=== PATIENT | male | born 1970 | race Caucasian/White ===

== ENCOUNTER 2018-03-05 21:54 | Emergency (ER) | payer BC ==
[2018-03-05 23:01] LABS: Absolute Lymphocytes (CBC) 3.1 K/uL (0.7-4.9); Absolute Neutrophil 10.8 K/uL (1.8-8.0); Basophils % 1.2 % (0-1.3); Eosinophils % 0.2 % (0-4.4); Lymphocytes % 20.3 % (15.3-44.8); MCV 84.7 fL (80-100); MPV 9.1 fL (7.6-11.3); Monocytes % 6.6 % (3.3-12.3); RBC Red Blood Cell Count 4.49 M/uL (4.33-5.43)
[2018-03-05] MEDS ORDERED: LIDOCAINE 1% W/EPI 1:100,000 MDV 50 ML VIAL ONE (23:09)
[2018-03-05] MEDS ORDERED: BUPIVACAINE 0.5% PF 10 ML VIAL ONE (23:09)
[2018-03-05 23:14] LABS: Potassium 3.5 mmol/L (3.5-5.1)
--- NOTE | 2018-03-05 23:32 | EDPHYS ---
Physician Documentation [facility] Name: Hayden Tolentino Jr Age: 47 yrs Sex: Male : 1970 Arrival Date: 03/05/2018 Time: 22:00 Bed 30 Private MD: ED Physician Hayden Pugh HPI: 03/05 22:38 This 47 yrs old Male presents to ER via Ambulatory with complaints of cp Possible Insect Bite. 22:40 The patient or guardian complains of an abscess, pain, swelling, tenderness. The cp complaints affect the left forearm. Context: resulted from possible insect bite. Treatment prior to arrival includes: prescription medications, topical cream. Associated signs and symptoms: Pertinent positives: warmth, Pertinent negatives: decreased range of motion, fever, numbness, weakness. Historical: - Allergies: 22:20 No Known Allergies; ea - Home Meds: 22:20 None [Active]; ea - PMHx: 22:20 None; ea - Immunization history:: Adult Immunizations up to date. - Social history:: Smoking status: Patient/guardian denies using tobacco. - Ebola Screening: : No symptoms or risks identified at this time. ROS: 22:45 Constitutional: Negative for body aches, chills, fever, poor PO intake. cp 22:45 Eyes: Negative for injury, pain, redness, and discharge. cp 22:45 Cardiovascular: Negative for chest pain, palpitations. 22:45 Respiratory: Negative for cough, shortness of breath, wheezing. 22:45 Abdomen/GI: Negative for abdominal pain, nausea, vomiting, and diarrhea. 22:45 Skin: Positive for abscess, cellulitis, of the left forearm. 22:45 Neuro: Negative for dizziness, headache, numbness, weakness. 22:45 All other systems are negative. Exam: 22:52 Constitutional: The patient appears in no acute distress, alert, awake, cp non-diaphoretic, non-toxic, well developed, well nourished. 22:52 Head/Face: Normocephalic, atraumatic. cp 22:52 Eyes: Periorbital structures: appear normal, Conjunctiva: normal, no exudate, no injection, Sclera: no appreciated abnormality, Lids and lashes: appear normal, bilaterally. 22:52 ENT: External ear(s): Nose: is normal, Mouth: Lips: moist, Oral mucosa: pink and intact, moist, Posterior pharynx: is normal, airway is patent, no erythema, no exudate. 22:52 Neck: ROM/movement: is normal, is supple, without pain, no range of motions limitations, no nuchal rigidity. 22:52 Chest/axilla: Inspection: normal. 22:52 Cardiovascular: Rate: normal, Rhythm: regular, Pulses: Pulses are 2+ in right radial artery and left radial artery. 22:52 Respiratory: the patient does not display signs of respiratory distress, Respirations: normal, no use of accessory muscles, no retractions, no splinting, no tachypnea, labored breathing, is not present. 22:52 Abdomen/GI: Inspection: abdomen appears normal, Bowel sounds: normal, in all quadrants. 22:52 Skin: abscess, that is small, times 2, of the left forearm, with surrounding cellulitis, that is moderate. Vital Signs: 22:20 BP 105 / 79; Pulse 86; Resp 20; Temp 99.7; Pulse Ox 97% on R/A; Weight 120.2 kg; Height ea 5 ft. 9 in. (175.26 cm); Pain 5/10; 03/06 00:34 BP 118 / 72; Pulse 80; Pulse Ox 96% on R/A; rv 03/05 22:20 Body Mass Index 39.13 (120.20 kg, 175.26 cm) ea Procedures: 03/05 23:29 I \T\ D: Incision and drainage was performed for an abscess of the left palmar aspect of cp left forearm Prepped with Betadine, Anesthetized with 8 ccs of 50/50 mixture 1% lidocaine with epi and 0.5% marcaine. Incised with #11 blade. Drained small amount purulent fluid. Cultures obtained. Packed with iodoform gauze, Dressing: sterile 4x4 gauze, the patient tolerated the procedure well, 2 separate areas noted to left forearm. MDM: 22:25 Patient medically screened. cp 23:00 Differential diagnosis: insect bite, sepsis, cellulitis, abscess. cp 23:30 Data reviewed: vital signs, nurses notes, lab test result(s), radiologic studies, plain cp films. 23:30 Counseling: I had a detailed discussion with the patient and/or guardian regarding: the cp historical points, exam findings, and any diagnostic results supporting the discharge/admit diagnosis, lab results, radiology results, the need for outpatient follow up, a family practitioner, to return to the emergency department if symptoms worsen or persist or if there are any questions or concerns that arise at home. Response to treatment: the patient's symptoms have markedly improved after treatment, and as a result, I will discharge patient. 03/05 22:40 Order name: CBC with Diff; Complete Time: 23:16 cp 03/05 22:40 Order name: BMP; Complete Time: 23:16 cp 03/05 22:40 Order name: Wound Culture cp 03/05 22:41 Order name: XRAY Forearm LEFT cp 03/05 22:40 Order name: IV; Complete Time: 22:54 cp 03/05 22:40 Order name: I\T\D Setup; Complete Time: 22:54 cp 03/05 23:29 Order name: Wound dressing: please outline area of redness; Complete Time: 23:49 cp Administered Medications: 23:49 Drug: Clindamycin 900 mg Route: IVPB; Infused Over: 30 mins; Site: right antecubital; rv 23:49 Drug: Bactrim (160 mg-800 mg (DS) 1 tablet Route: PO; rv Disposition: 03/05/18 23:32 Discharged to Home. Impression: Cutaneous abscess of left upper limb - times 2, Cellulitis of left upper limb. - Condition is Stable. - Discharge Instructions: Skin Abscess, Cellulitis, Adult, Incision and Drainage. - Prescriptions for Clindamycin HCl 300 mg Oral Capsule - take 1 capsule by ORAL route every 6 hours for 10 days; 40 capsule. Bactrim DS 800- 160 mg Oral Tablet - take 1 tablet by ORAL route every 12 hours for 10 days; 20 tablet. - Medication Reconciliation Form, Thank You Letter, Antibiotic Education, Prescription Opioid Use form. - Follow up: Private Physician; When: 48 Hours; Reason: Wound Recheck. - Problem is new. - Symptoms have improved. Addendum: 03/10/2018 07:30 Co-signature as Attending Physician, Hayden Pugh MD I agree with the assessment and w a plan of care. Signatures: Dispatcher [employer] EDMS Jamie Lindo PA PA cp Antunez, Elena, RN RN ea Appiah, William, MD MD wa Vicente, Ronaldo, RN RN rv Corrections: (The following items were deleted from the chart) 03/05 22:57 22:40 Elbow Left 3 View+RAD.RAD.[email or web address] ordered. [facility] 03/06 00:35 03/05 23:32 03/05/2018 23:32 Discharged to Home. Impression: Cutaneous abscess of left rv upper limb - times 2; Cellulitis of left upper limb. Condition is Stable. Forms are Medication Reconciliation Form, Thank You Letter, Antibiotic Education, Prescription Opioid Use. Follow up: Private Physician; When: 48 Hours; Reason: Wound Recheck. Problem is new. Symptoms have improved. cp
--- NOTE | 2018-03-05 23:32 | ER ---
Nurse's Notes [facility] Name: Hayden Tolentino Jr Age: 47 yrs Sex: Male : 1970 Arrival Date: 03/05/2018 Time: 22:00 Bed 30 Private MD: Diagnosis: Cutaneous abscess of left upper limb-times 2;Cellulitis of left upper limb Presentation: 03/05 22:15 Presenting complaint: Patient states: Pt reports he had some insect bite to left ea forearm that started about two days ago. Pt reports he had a rash two weeks ago , store mgr gave medication to put on it, rash had disappeared. Transition of care: patient was not received from another setting of care. Onset of symptoms was March 05, 2018. Risk Assessment: Do you want to hurt yourself or someone else? Patient reports no desire to harm self or others. Initial Sepsis Screen: Does the patient meet any 2 criteria? No. Patient's initial sepsis screen is negative. Does the patient have a suspected source of infection? Yes: Skin breakdown/wound. Care prior to arrival: None. 22:15 Method Of Arrival: Ambulatory ea 22:15 Acuity: KRISTEL 4 ea Triage Assessment: 22:21 General: Appears in no apparent distress. Behavior is calm, cooperative, appropriate ea for age. Pain: Complains of pain in dorsal aspect of left forearm and palmar aspect of left forearm Pain does not radiate. Pain currently is 5 out of 10 on a pain scale. Neuro: Level of Consciousness is awake, alert, obeys commands, Oriented to person, place, time. Cardiovascular: Patient's skin is warm and dry. Respiratory: Airway is patent Respiratory effort is even, unlabored, Respiratory pattern is regular, symmetrical. Derm: Rash noted that is itchy, red, raised, on dorsal aspect of left forearm and palmar aspect of left forearm. Historical: - Allergies: 22:20 No Known Allergies; ea - Home Meds: 22:20 None [Active]; ea - PMHx: 22:20 None; ea - Immunization history:: Adult Immunizations up to date. - Social history:: Smoking status: Patient/guardian denies using tobacco. - Ebola Screening: : No symptoms or risks identified at this time. Screenin:21 Abuse screen: Denies threats or abuse. Nutritional screening: No deficits noted. ea Tuberculosis screening: No symptoms or risk factors identified. Fall Risk None identified. Assessment: 23:00 General: Appears in no apparent distress. comfortable, Behavior is calm, cooperative. rv Pain: Complains of pain in dorsal aspect of right forearm. Neuro: Level of Consciousness is awake, alert, obeys commands, Oriented to person, place, time, situation. Cardiovascular: Heart tones S1 S2 present. Respiratory: Airway is patent. GI: No signs and/or symptoms were reported involving the gastrointestinal system. : No signs and/or symptoms were reported regarding the genitourinary system. EENT: No signs and/or symptoms were reported regarding the EENT system. Derm: Skin is intact. Vital Signs: 22:20 BP 105 / 79; Pulse 86; Resp 20; Temp 99.7; Pulse Ox 97% on R/A; Weight 120.2 kg; Height ea 5 ft. 9 in. (175.26 cm); Pain 5/10; 03/06 00:34 BP 118 / 72; Pulse 80; Pulse Ox 96% on R/A; rv 03/05 22:20 Body Mass Index 39.13 (120.20 kg, 175.26 cm) ea ED Course: 03/05 22:00 Patient arrived in ED. ds1 22:18 Triage completed. ea 22:22 Arm band placed on right wrist. Patient placed in an exam room, on a stretcher. ea 22:25 Jamie Lindo PA is PHCP. cp 22:25 Hayden Pugh MD is Attending Physician. cp 22:57 XRAY Forearm LEFT In Process Unspecified. EDMS 23:00 Inserted saline lock: 20 gauge in right forearm, using aseptic technique. rv 23:55 Assist provider with I \T\ D: of an abscess on left FORE ARM Set up I\T\D tray. Performed rv by Jamie NICHOLSON Culture sent to lab. Wound packed. 4X4s, Dressing with Neosporin and 4X4s, Patient tolerated well. 03/06 00:35 IV discontinued, bleeding controlled, No redness/swelling at site. Pressure dressing rv applied. Administered Medications: 03/05 23:49 Drug: Clindamycin 900 mg Route: IVPB; Infused Over: 30 mins; Site: right antecubital; rv 23:49 Drug: Bactrim (160 mg-800 mg (DS) 1 tablet Route: PO; rv Outcome: 23:32 Discharge ordered by . [place] 03/06 00:34 Discharged to home ambulatory. rv Condition: improved Discharge instructions given to patient, Instructed on discharge instructions, follow up and referral plans. medication usage, Prescriptions given X 2. 00:35 Patient left the ED. rv Addendum: 03/09/2018 07:50 Addendum: Culture Results: Positive urine culture. No further action required. Bacteria s s sensitive to prescribed antibiotic. Signatures: Dispatcher [employer] [facility] Celia Mendoza ds1 Dora Overton RN RN ss Jamie Lindo, BHARAT PA Odette Bradley, RN RN Vinay Gray RN RN rv
[2018-03-05] MEDS ORDERED: SMZ./TMP. 800/160 MG TABLET ONE (23:45)
[2018-03-05] MEDS ORDERED: CLINDAMYCIN 900MG/D5W 900 MG/50 ML BAG IV ONE (23:45)
--- NOTE | 2018-03-06 08:29 | RAD REPORT ---
EXAM DESCRIPTION: RAD - Forearm Left - 03/05/2018 10:57 pm CLINICAL HISTORY: Left forearm pain and swelling. Insect bite. FINDINGS: No fracture is seen Soft tissue swelling is present about the proximal left forearm. No bony destructive lesion is seen. Air within the soft tissues is not visualized An exostosis extends off of the distal humerus
== END 2018-03-06 00:35 | disposition home or self-care (01) ==
LOC: ER 21:54
PROC: 0J9H0ZZ Drainage of Left Lower Arm Subcutaneous Tissue and Fascia, Open Approach (ICD-10-PCS; principal; 2018-03-05)
DX: L02.414 Cutaneous abscess of left upper limb (principal); L03.114 Cellulitis of left upper limb
CPT/HCPCS: 36415; 80048; 85025; 87070; 87077; 87186; 87205; 96374; 99284